=== PATIENT | female | born 1985 | race Caucasian/White ===

== ENCOUNTER → 2018-01-31 | Outpatient (CLI) | payer BC ==
[2018-01-31 12:18] LABS: Basophils % (A) 1 %; Eosinophils # (A) 0.1 k/uL (0-0.7); Eosinophils % (A) 1 %; HCT 39.3 % (34.0-46.0); HGB 12.9 gm/dL (11.4-16.0); Lymphocytes % (A) 17 %; MCH 29.5 pg (25.0-35.0); MCHC 32.9 g/dL (31.0-37.0); MCV 89.8 fL (80.0-100.0); Monocytes # (A) 0.3 k/uL (0-1.0); Monocytes % (A) 6 %; Neutrophils # (A) 4.1 k/uL (1.3-7.7); Neutrophils % (A) 73 %; Platelet Count 268 k/uL (150-450); RBC 4.38 m/uL (3.80-5.40); RDW 13.2 % (11.5-15.5); WBC 5.6 k/uL (3.8-10.6)
== END | disposition home or self-care (01) ==
LOC: LABPAT 11:25
PROVIDERS: ATTEND Obstetrics & Gynecology
DX: Z01.812 Encounter for preprocedural laboratory examination (principal); O02.1 Missed abortion; Z3A.00 Weeks of gestation of pregnancy not specified
CPT/HCPCS: 36415; 85025; 86850; 86900; 86901

== ENCOUNTER 2018-02-02 14:48 | Day surgery (SDC) | payer BC ==
[2018-01-31 15:22] VITALS: BMI 20.3
[~2018-02-02 14:48] MED LIST: Pre Op ABX Message 1 EACH MISC MISCELLANE ONE
[2018-02-02] MEDS ORDERED: LACTATED RINGERS 1,000 ML IV ONE (15:02)
[2018-02-02] MEDS ORDERED: LIDOCAINE 1% 20 ML VIAL (10MG/ML) FOR IV START INTRADERMA ONE (15:02)
[2018-02-02] MEDS ORDERED: ONDANSETRON 4 MG/2 ML VIAL IVP ONE (15:14)
[2018-02-02] MEDS ORDERED: DEXAMETHASONE SOD PHOS (MDV) 100 MG/10 ML VIAL IVP ONE (15:14)
[2018-02-02] MEDS ORDERED: PROPOFOL 10 MG/ML 20 ML VIAL IV ONE (16:33)
[2018-02-02] MEDS ORDERED: KETOROLAC 30 MG/ML 1 ML VIAL ONE (16:33)
[2018-02-02] MEDS ORDERED: fentaNYL (PF) 50 MCG/ML 2 ML AMP ONE (16:33)
[2018-02-02] MEDS ORDERED: LIDOCAINE 1% INJ 10MG/ML (20 ML MDV) ONE (16:33)
[2018-02-02] MEDS ORDERED: MIDAZOLAM 2 MG/2 ML VIAL ONE (16:33)
--- NOTE | 2018-02-02 17:00 | P.OP ---
Date of Procedure: 02/02/18 Preoperative Diagnosis: Missed Ab, 8 weeks gestation, Rh- Postoperative Diagnosis: Same Procedure(s) Performed: Suction dilatation and curettage of the uterus Anesthesia: NIESHA Surgeon: Pearl Tam Estimated Blood Loss (ml): 100 IV fluids (ml): 400 Urine output (ml): 100 Pathology: other (Intra uterine contents) Disposition: PACU Description of Procedure: Patient is brought to the operating suite where a general anesthesia is administered without difficulty. She's placed in the dorsal lithotomy position after the appropriate timeout is performed. Patient is Rh-, RhIg has been given in the office. The cervix, vagina, perineum are all prepped and draped in the usual sterile fashion. Examination under anesthesia reveals a retroverted uterus. Bladder is drained for approximately 100 mL of clear yellow urine. Weighted speculum was placed into the vagina. Anterior lip of the cervix is grasped with a double-tooth tenaculum. Uterus sounds to a depth of 10 cm in the retroverted position. Cervix is gently and systematically dilated using Hanks dilators. A #8 curved curet is placed to the dome of the fundus. Under appropriate suction pressures the uterine cavity is thoroughly curettaged. A moderate amount of tissue is obtained. A medium sharp curette is then used in all 4 quadrants to assure that the cavity is completely and thoroughly evacuated. The suction curette is placed once again, no additional blood or tissue is obtained. Instrumentation is removed from the vagina. The anterior lip of the cervix is clean and dry. All sponge needle and enhancement counts are correct at the and of the procedure. Toradol is given prior to leaving the operative suite. Patient is brought back to the recovery room in stable condition with vital signs including blood pressure 103/61, pulse 71, 99% O2 saturation. She will follow-up with me in the office in 2 weeks.
[2018-02-02 17:28] VITALS: TEMP 97.5
[2018-02-02 17:32] VITALS: RESP 16
[2018-02-02 17:47] VITALS: BP 102/70
[2018-02-02 18:05] VITALS: PULSE 72
== END 2018-02-02 18:26 | disposition home or self-care (01) ==
LOC: OR 14:48
PROVIDERS: ATTEND Obstetrics & Gynecology
DX: O02.1 Missed abortion (principal); K50.90 Crohn's disease, unspecified, without complications; D64.9 Anemia, unspecified; Z91.041 Radiographic dye allergy status; Z86.19 Personal history of other infectious and parasitic diseases
CPT/HCPCS: 88305; 59820; J2250; J2405; J2001; J3010; J1885; J1100; J2704

== ENCOUNTER 2018-06-13 14:14 | Emergency (ER) | payer BC ==
[2018-06-13] MEDS ORDERED: SODIUM CHLORIDE 0.9% 1,000 ML IV STA ×3 (15:07→16:26)
--- NOTE | 2018-06-13 15:40 | ED ---
General Adult HPI - General Chief complaint: Nausea/Vomiting/Diarrhea Stated complaint: 11 wks preg/dehydration Time Seen by Provider: 06/13/18 15:01 Source: patient, RN notes reviewed Mode of arrival: ambulatory Limitations: no limitations - History of Present Illness Initial comments: Patient's a 33-year-old female who is approximately 11 weeks , presenting to the emergency room today with a chief complaint of increased nausea vomiting and diarrhea. She does admit to a history of Crohn's disease. States over last few weeks she's been battling nausea vomiting and diarrhea. She states that she talked with her OB yesterday was advised complete emergency room for IV fluids if symptoms persisted. She states that she's had somewhat decreased nausea today but still some diarrhea. Patient denies any signs of blood in the emesis or stool. Patient denies any specific abdominal pains. She states she does have some cramping. No vaginal bleeding or discharge. Patient is G3, P1 one previous miscarriage. Patient has had ultrasound this showing viable IUP. Patient denies any other complaints. Patient denies any recent fever, chills, shortness of breath, chest pain, back pain, numbness or tingling, dysuria or hematuria, constipation, headaches or visual changes, or any other complaints. - Related Data Home Medications Medication Instructions Recorded Confirmed Dha Otc 1 tab PO HS 06/13/18 06/13/18 Pedi Multivit No.25/Folic Acid 300 mcg PO HS 06/13/18 06/13/18 [Flintstones Multivit Chew Tab] Allergies Allergy/AdvReac Type Severity Reaction Status Date / Time oral contrast AdvReac Vomiting Uncoded 06/13/18 14:19 Review of Systems ROS Statement: Those systems with pertinent positive or pertinent negative responses have been documented in the HPI. ROS Other: All systems not noted in ROS Statement are negative. Past Medical History Additional Past Medical History / Comment(s): missed ,chrohns History of Any Multi-Drug Resistant Organisms: None Reported Past Surgical History: Adenoidectomy, Tonsillectomy Additional Past Surgical History / Comment(s): Bowel resection with 3 feet removed due to chrons dx. L oophorectomy for benign tumor. Past Anesthesia/Blood Transfusion Reactions: No Reported Reaction Additional Past Anesthesia/Blood Transfusion Reaction / Comment(s): Pt has never recieved blood. Past Psychological History: No Psychological Hx Reported Smoking Status: Never smoker Past Alcohol Use History: None Reported Past Drug Use History: None Reported - Past Family History Father Family Medical History: Diabetes Mellitus Mother Additional Family Medical History / Comment(s): cholecystectomy Sister(s) Additional Family Medical History / Comment(s): multiple sclerosis General Exam - General Exam Comments Initial Comments: General: The patient is awake and alert, in no distress, and does not appear acutely ill. Eye: Pupils are equal, round and reactive to light. Extra-ocular movements are intact. No nystagmus. There is normal conjunctiva bilaterally. No signs of icterus. Ears, nose, mouth and throat: There are moist mucous membranes and no oral lesions. Neck: The neck is supple, there is no tenderness or JVD. Cardiovascular: There is a regular rate and rhythm. No murmur, rub or gallop is appreciated. Respiratory: Lungs are clear to auscultation, respirations are non-labored, breath sounds are equal. No wheezes, stridor, rales, or rhonchi. Gastrointestinal: Soft, non-distended, non-tender abdomen without masses or organomegaly noted. There is no rebound or guarding present. No CVA tenderness. Musculoskeletal: Normal ROM, no tenderness. Sensation intact. Strength 5/5. Pulses equal bilaterally 2+. Neurological: A&O x 3. CN II-XII intact, There are no obvious motor or sensory deficits. Coordination appears grossly intact. Speech is normal. Skin: Skin is warm and dry and no rashes or lesions are noted. Psychiatric: Cooperative, appropriate mood & affect, normal judgment. Limitations: no limitations Course Vital Signs 06/13/18 14:15 Temperature 97.9 F Pulse Rate 89 Respiratory 18 Rate Blood Pressure 115/78 O2 Sat by Pulse 99 Oximetry Medical Decision Making - Medical Decision Making Case discussed in detail with attending physician Dr. Weber. Patient reexamined at this time shows no signs of distress. She is resting couple. Patient labs been reviewed. Shows a glucose of 144. 4 + Glucose in her urine 3+ ketones. Patient given total of 2 L here in emergency room. Doing well. Abdomen soft on palpation. Patient has no current complaint. Patient will be discharged home to follow up with her CAFETERIA OPERATOR she does have an appointment tomorrow. - Lab Data Result diagrams: 06/13/18 15:47 06/13/18 15:47 Lab Results 06/13/18 06/13/18 06/13/18 Range/Units 15:47 15:47 15:47 WBC 5.9 (3.8-10.6) k/uL RBC 4.27 (3.80-5.40) m/uL Hgb 12.8 (11.4-16.0) gm/dL Hct 37.5 (34.0-46.0) % MCV 87.8 (80.0-100.0) fL MCH 29.9 (25.0-35.0) pg MCHC 34.1 (31.0-37.0) g/dL RDW 12.7 (11.5-15.5) % Plt Count 235 (150-450) k/uL Neutrophils % 65 % Lymphocytes % 24 % Monocytes % 7 % Eosinophils % 1 % Basophils % 0 % Neutrophils # 3.8 (1.3-7.7) k/uL Lymphocytes # 1.4 (1.0-4.8) k/uL Monocytes # 0.4 (0-1.0) k/uL Eosinophils # 0.1 (0-0.7) k/uL Basophils # 0.0 (0-0.2) k/uL Sodium 137 (137-145) mmol/L Potassium 3.7 (3.5-5.1) mmol/L Chloride 105 (98-107) mmol/L Carbon Dioxide 22 (22-30) mmol/L Anion Gap 10 mmol/L BUN 12 (7-17) mg/dL Creatinine 0.39 L (0.52-1.04) mg/dL Est GFR (CKD-EPI)AfAm >90 (>60 ml/min/1.73 sqM) Est GFR (CKD-EPI)NonAf >90 (>60 ml/min/1.73 sqM) Glucose 144 H (74-99) mg/dL Calcium 9.5 (8.4-10.2) mg/dL Total Bilirubin 0.3 (0.2-1.3) mg/dL AST 18 (14-36) U/L ALT 27 (9-52) U/L Alkaline Phosphatase 45 (38-126) U/L Total Protein 6.5 (6.3-8.2) g/dL Albumin 3.8 (3.5-5.0) g/dL Urine Color Yellow Urine Appearance Clear (Clear) Urine pH 5.5 (5.0-8.0) Ur Specific [place] 1.029 (1.001-1.035) Urine Protein Trace H (Negative) Urine Glucose (UA) 4+ H (Negative) Urine Ketones 3+ H (Negative) Urine Blood Negative (Negative) Urine Nitrite Negative (Negative) Urine Bilirubin Negative (Negative) Urine Urobilinogen <2.0 (<2.0) mg/dL Ur Leukocyte Esterase Trace H (Negative) Urine RBC 1 (0-5) /hpf Urine WBC 6 H (0-5) /hpf Ur Squamous Epith Cells 4 (0-4) /hpf Urine Bacteria Rare H (None) /hpf Urine Mucus Moderate H (None) /hpf Disposition Clinical Impression: Hyperemesis gravidarum, Elevated blood sugar Disposition: HOME SELF-CARE Condition: Good Instructions: Hyperemesis Gravidarum (ED) Additional Instructions: Please follow-up with CAFETERIA OPERATOR with her scheduled appointment tomorrow. Please return to emergency room if the symptoms increase or worsen or for any other concerns. Is patient prescribed a controlled substance at d/c from ED?: No Referrals: Nonstaff,Physician [REFERRING] - 1-2 days Pearl Tam MD [STAFF PHYSICIAN] - 1-2 days Time of Disposition: 16:59
[2018-06-13 16:10] LABS: Basophils % (A) 0 %; Eosinophils # (A) 0.1 k/uL (0-0.7); Eosinophils % (A) 1 %; HCT 37.5 % (34.0-46.0); HGB 12.8 gm/dL (11.4-16.0); Lymphocytes # (A) 1.4 k/uL (1.0-4.8); Lymphocytes % (A) 24 %; MCH 29.9 pg (25.0-35.0); MCHC 34.1 g/dL (31.0-37.0); MCV 87.8 fL (80.0-100.0); Mean Platelet Volume 6.5; Monocytes # (A) 0.4 k/uL (0-1.0); Monocytes % (A) 7 %; Neutrophils # (A) 3.8 k/uL (1.3-7.7); Neutrophils % (A) 65 %; Platelet Count 235 k/uL (150-450); RBC 4.27 m/uL (3.80-5.40); RDW 12.7 % (11.5-15.5); WBC 5.9 k/uL (3.8-10.6)
[2018-06-13 16:13] LABS: Appearance,Urine Clear (Clear); Bacteria,Urine Rare /hpf; Bilirubin,Urine Negative (Negative); Blood,Urine Negative (Negative); Color,Urine Yellow; Glucose,Urine (UA) 4+ (Negative); Leukocyte Esterase,Urine Trace (Negative); Mucus,Urine Moderate /hpf; Nitrite,Urine Negative (Negative); PH, Urine 5.5 (5.0-8.0); Protein,Urine Trace (Negative); RBC,Urine 1 /hpf (0-5); Specific Gravity,Urine 1.029 (1.001-1.035); Squamous Epithelial Cell,Urine 4 /hpf (0-4); Urobilinogen,Urine <2.0 mg/dL (<2.0)
[2018-06-13 16:24] LABS: Ketones,Urine 3+ (Negative)
[2018-06-13 16:30] LABS: ALT 27 U/L (9-52); AST 18 U/L (14-36); Albumin 3.8 g/dL (3.5-5.0); Alkaline Phosphatase 45 U/L (38-126); Anion Gap 10 mmol/L; Blood Urea Nitrogen 12 mg/dL (7-17); Calcium 9.5 mg/dL (8.4-10.2); Carbon Dioxide 22 mmol/L (22-30); Chloride 105 mmol/L (98-107); Glucose 144 mg/dL (74-99); Potassium 3.7 mmol/L (3.5-5.1); Sodium 137 mmol/L (137-145); Total Bilirubin 0.3 mg/dL (0.2-1.3); Total Protein 6.5 g/dL (6.3-8.2)
[2018-06-13 17:12] VITALS: TEMP 97.5
[2018-06-13 18:13] VITALS: BP 102/76; PULSE 89; RESP 18
== END 2018-06-13 18:11 | disposition home or self-care (01) ==
LOC: EC 14:14
DX: O21.1 Hyperemesis gravidarum with metabolic disturbance (principal); O99.89 Other specified diseases and conditions complicating pregnancy, childbirth and the puerperium; R73.9 Hyperglycemia, unspecified; R19.7 Diarrhea, unspecified; Z91.041 Radiographic dye allergy status; Z87.19 Personal history of other diseases of the digestive system; Z98.890 Other specified postprocedural states; Z90.721 Acquired absence of ovaries, unilateral; Z83.3 Family history of diabetes mellitus; Z3A.11 11 weeks gestation of pregnancy
CPT/HCPCS: 36415; 80053; 81001; 85025; 87086; 96360; 96361; 99284

== ENCOUNTER → 2018-10-20 | Outpatient (CLI) | payer BC ==
[2018-10-20 12:16] LABS: Glucose 3 Hour, Gest 115 mg/dL
== END | disposition home or self-care (01) ==
LOC: LABWHC1 08:01
PROVIDERS: ATTEND Obstetrics & Gynecology
DX: O99.810 Abnormal glucose complicating pregnancy (principal); Z3A.00 Weeks of gestation of pregnancy not specified
CPT/HCPCS: 36415; 82951; 82952

== ENCOUNTER 2019-01-02 06:00 | Inpatient (IN) | payer BC ==
[2019-01-02] MEDS ORDERED: TERBUTALINE 1 MG/ML VIAL SQ PRN (06:12)
[2019-01-02] MEDS ORDERED: CARBOPROST TROMETHAMINE 250 MCG/ML 1 ML AMP IM PRN (06:12)
[2019-01-02] MEDS ORDERED: LIDOCAINE 0.5% (PF) 5 MG/ML (50 ML SDV) SQ PRN (06:12)
[2019-01-02] MEDS ORDERED: OXYTOCIN 10 UNIT/ML 1 ML VIAL IM PRN (06:12)
[2019-01-02] MEDS ORDERED: METHYLERGONOVINE 0.2 MG/ML 1 ML AMP IM PRN (06:12)
[2019-01-02] MEDS ORDERED: OXYTOCIN 30 UNITS/500 ML NS 30 UNIT in SALINE 1 500ML.BAG IV SCH (06:15)
[2019-01-02] MEDS: LACTATED RINGERS 1,000 ML IV SCH ×2 (06:22→09:40)
[2019-01-02 06:51] LABS: Basophils % (A) 0 %; Eosinophils # (A) 0.1 k/uL (0-0.7); Eosinophils % (A) 1 %; HGB 11.7 gm/dL (11.4-16.0); Lymphocytes # (A) 1.2 k/uL (1.0-4.8); Lymphocytes % (A) 29 %; MCH 28.9 pg (25.0-35.0); MCHC 31.7 g/dL (31.0-37.0); MCV 91.3 fL (80.0-100.0); Mean Platelet Volume 8.8; Monocytes # (A) 0.3 k/uL (0-1.0); Monocytes % (A) 7 %; Neutrophils # (A) 2.5 k/uL (1.3-7.7); Neutrophils % (A) 60 %; Platelet Count 196 k/uL (150-450); RBC 4.05 m/uL (3.80-5.40); RDW 14.4 % (11.5-15.5); WBC 4.1 k/uL (3.8-10.6)
[2019-01-02 07:15] VITALS: BMI 27.4
--- NOTE | 2019-01-02 07:37 | P.HPOB ---
History of Present Illness H&P Date: 01/02/19 Chief Complaint: Here for elective induction of labor This is a 33-year-old white female 3 para 1011 EDC 01/02/2019 at 40 weeks gestation. Patient presents today for induction with favorable multiparous cervix. Fetus is been active throughout the . She is having mild irregular spontaneous uterine contractions approximately every 6-8 minutes apart. history significant for blood type O-, rubella status immune. VDRL testing, urine culture, hepatitis B surface antigen, HIV testing, gonorrhea and chlamydia cultures, group B strep cultures all negative. One-hour Glucola elevated, 3 hour gtt within normal limits. Past medical history is significant for Crohn's disease, Lyme disease, and anemia. Past surgical history left oophorectomy 2010, small intestine and colon repair 2007, suction D&C for missed AB 2017, tonsillectomy 1998. Current medications Fish oil daily, vitamins daily. ALLERGIES none known. Family history is significant for congenital heart defect, multiple sclerosis, diabetes, hypertension. Social history patient is , she is never been a smoker, she denies alcohol or drug use. On exam this is a pleasant white female who is 5 foot 3 inches, 155 pounds, blood pressure 118/75, vital signs are stable and she is afebrile. Gen. physical exam is within normal limits. Cervix is 3 cm dilated, 60% effaced, soft, anterior, -2. Artificial amniorrhexis reveals clear fluid. heart rate is consistent with reactive NST, baseline 130s with accelerations into the 150s. Impression: 40 week intrauterine , here for elective induction of labor, all signs reassuring. Plan: Close maternal and surveillance. Oxytocin per hospital protocol. Anticipate normal spontaneous vaginal delivery. Review of Systems Constitutional: Reports as per HPI Past Medical History Additional Past Medical History / Comment(s): missed ,chrohns History of Any Multi-Drug Resistant Organisms: None Reported Past Surgical History: Adenoidectomy, Tonsillectomy Additional Past Surgical History / Comment(s): Bowel resection with 3 feet removed due to chrons dx. L oophorectomy for benign tumor. Past Anesthesia/Blood Transfusion Reactions: No Reported Reaction Additional Past Anesthesia/Blood Transfusion Reaction / Comment(s): Pt has never recieved blood. Past Psychological History: Anxiety Smoking Status: Never smoker Past Alcohol Use History: None Reported Past Drug Use History: None Reported - Past Family History Father Family Medical History: Diabetes Mellitus, Myocardial Infarction ([place]) Mother Additional Family Medical History / Comment(s): cholecystectomy Sister(s) Additional Family Medical History / Comment(s): multiple sclerosis Medications and Allergies Home Medications Medication Instructions Recorded Confirmed Type Pedi Multivit No.25/Folic Acid 300 mcg PO HS 06/13/18 01/02/19 History [Flintstones Multivit Chew Tab] Allergies Allergy/AdvReac Type Severity Reaction Status Date / Time oral contrast AdvReac Vomiting Uncoded 01/02/19 06:08 Exam Vital Signs Temp Pulse Resp BP 01/02/19 07:09 96.5 F L 99 16 118/75 Intake and Output 01/01/19 01/02/19 01/02/19 22:59 06:59 14:59 Other: Weight 70.307 kg See dictation under HPI please Results Result Diagrams: 01/02/19 06:29 Assessment and Plan Assessment: 40 week intrauterine , Crohn's disease, here for elective induction of labor, all signs reassuring. Plan: Oxytocin per hospital protocol. All signs reassuring. Analgesic options reviewed with the patient. Anticipate normal spontaneous vaginal delivery. Time with Patient: Less than 30
[2019-01-02] MEDS ORDERED: fentaNYL (PF) 50 MCG/ML 5 ML AMP ONE (09:28)
[2019-01-02] MEDS ORDERED: ROPIVACAINE 5MG/ML 20ML VIAL ONE (09:28)
[2019-01-02] MEDS ORDERED: SODIUM CHLORIDE 0.9% 100 ML BAG ONE (09:28)
[2019-01-02] MEDS ORDERED: ROPIVACAINE 100 MG, fentaNYL (PF) 200 MCG in SODIUM CHLORIDE 0.9% 76 ML EPIDURAL ONE (09:45)
[2019-01-02] MEDS ORDERED: WITCH HAZEL 1 EACH MED..PAD TOPICAL ONE (13:18)
[2019-01-02] MEDS ORDERED: BENZOCAINE/MENTHOL SPRAY 1 GM/SPRAY AEROSOL TOPICAL PRN (14:38)
[2019-01-02] MEDS ORDERED: SIMETHICONE 80 MG CHEWABLE PO PRN (14:38)
[2019-01-02] MEDS ORDERED: diphenhydrAMINE 50 MG/ML 1 ML VIAL IVP PRN ×2 (14:38)
[2019-01-02] MEDS ORDERED: ZOLPIDEM 5 MG TAB PO PRN (14:38)
[2019-01-02] MEDS ORDERED: WITCH HAZEL 1 EACH MED..PAD TOPICAL PRN (14:38)
[2019-01-02] MEDS ORDERED: diphenhydrAMINE 50 MG CAP PO PRN (14:38)
[2019-01-02] MEDS ORDERED: ACETAMINOPHEN TAB 325 MG TAB PO PRN (14:38)
[2019-01-02] MEDS ORDERED: diphenhydrAMINE 25 MG CAP PO PRN (14:38)
[2019-01-02] MEDS ORDERED: BISACODYL 10 MG SUPP RECTAL PRN (14:38)
[2019-01-02] MEDS ORDERED: OXYTOCIN 20 UNITS/1000 ML NS 1,000 ML IV SCH (14:45)
[2019-01-02] MEDS: IBUPROFEN 600 MG TAB PO PRN (20:15)
[2019-01-02] MEDS: SENNOSIDES-DOCUSATE SODIUM 1 EACH TAB PO SCH (20:16)
[2019-01-02] MEDS ORDERED: Rhogam IMMUNE GLOBULIN 1,500 UNIT/1 ML IM ONE (21:15)
[2019-01-03] MEDS: IBUPROFEN 600 MG TAB PO PRN ×2 (04:19→13:15)
--- NOTE | 2019-01-03 06:18 | DN ---
DELIVERY SUMMARY DATE OF DELIVERY: 01/02/2019. This is a 33-year-old white female, 3, para 1-0-1-1, EDC 01/02/2019, at 40 weeks gestation. Patient presented earlier this morning for induction with term multiparous cervix. Fetus has been active throughout the . history essentially unremarkable, rubella status immune, group B strep cultures negative, blood type O negative. Please see dictated history and physical for details. Artificial amniorrhexis revealed clear fluid. Oxytocin was started and titrated per hospital protocol. The patient progressed well through the 1st stage of labor, she requested and received an epidural. She became completely dilated at 1255 hours. Perineal body was prepped and draped in usual sterile fashion. With excellent maternal expulsive efforts, the infant's head delivered occiput anterior and restituted accordingly. The left or anterior shoulder was gently and easily delivered from underneath the pubic symphysis. The patient was officially delivered of a live-born male infant at 1:16 pm. Umbilical cord was doubly clamped and ligated, he was handed to waiting nurses for evaluation with scores of 8 and 9 at 1 and 5 minutes respectively were given. The uterus was massaged. The placenta delivered spontaneously, it was inspected and noted to be intact with trivascular cord at 1:18 pm. Inspection now of the cervix, vagina, perineum, periurethral, and perirectal areas revealed a small second-degree midline perineal laceration. This was repaired in the usual fashion using 2-0 Vicryl suture for excellent reapproximation. Fundus is firm and in the midline, symmetric and 18 week size upon completion of delivery. ESTIMATED BLOOD LOSS: 250 mL. The patient and her are allowed to begin the bounding experience in the LDR. They are requesting circumcision for the infant son, who weighed 7 pounds 10 ounces or 3460 g. MMODL / IJN: [id number] /
--- NOTE | 2019-01-03 07:18 | P.DS ---
Providers Date of admission: 01/02/19 06:01 Expected date of discharge: 01/03/19 Attending physician: Pearl Tam Primary care physician: Stated None Hospital Course: This is a 33-year-old white female 3 para 1011 EDC 01/02/2019 at 40 weeks gestation. Patient presented for elective induction with favorable multiparous cervix. is remarkable for rubella status immune, blood type O negative, group B strep cultures negative. Please see dictated history and physical for details. Artificial amniorrhexis revealed clear fluid. Oxytocin was started and titrated per hospital protocol. Patient went on to swiftly deliver a liveborn male with scores of 9 and 9 at one and 5 minutes respectively. Infant weighed 7 lbs. 10 oz. or 3460 g. There was a small second-degree perineal laceration easily repaired and an estimated blood loss of 250 mL's. Please see my dictated delivery note for details. This morning the patient is doing well. She is voiding, ambulating and passing flatus without difficulty. Vital signs are stable and she is afebrile. Fundus is firm and in the midline, symmetric and 18 week size. Extremities are negative for edema. [place] infant is doing well, circumcision has been pe rformed. Patient is judged to be in very good condition for discharge home. She will follow-up with me in the office in 6 weeks. I have reminded her no intercourse, tampons or douching. She will use [id number] Advil or Aleve, or Motrin as needed for pain. She will call the office with any fevers shakes or chills, foul smelling or copious lochia, with the passage of large blood clots, with any pain not alleviated by [id number] products, or indeed with any concerns. will follow-up with pantomimist as per recommendations. Patient Condition at Discharge: Good Plan - Discharge Summary Discharge Rx Participant: No New Discharge Prescriptions: No Action Pedi Multivit No.25/Folic Acid [Flintstones Multivit Chew Tab] 300 mcg PO HS Discharge Medication List Pedi Multivit No.25/Folic Acid [Flintstones Multivit Chew Tab] 300 mcg PO HS 06/13/18 [History] Follow up Appointment(s)/Referral(s): Pearl Tam MD [STAFF PHYSICIAN] - 6 Weeks Discharge Disposition: HOME SELF-CARE
[2019-01-03] MEDS: SENNOSIDES-DOCUSATE SODIUM 1 EACH TAB PO SCH (08:15)
[2019-01-03 08:18] VITALS: BP 112/69; PULSE 82; RESP 18; TEMP 97.8
== END 2019-01-03 13:50 | disposition home or self-care (01) | DRG 806 ==
LOC: 4FBP 06:01
PROVIDERS: ADMIT Obstetrics & Gynecology; ATTEND Obstetrics & Gynecology
PROC: 10E0XZZ Delivery of Products of Conception, External Approach (ICD-10-PCS; principal; 2019-01-02)
PROC: 0KQM0ZZ Repair Perineum Muscle, Open Approach (ICD-10-PCS; 2019-01-02)
PROC: 10907ZC Drainage of Amniotic Fluid, Therapeutic from Products of Conception, Via Natural or Artificial Opening (ICD-10-PCS; 2019-01-02)
PROC: 3E033VJ Introduction of Other Hormone into Peripheral Vein, Percutaneous Approach (ICD-10-PCS; 2019-01-02)
PROC: 00HU33Z Insertion of Infusion Device into Spinal Canal, Percutaneous Approach (ICD-10-PCS; 2019-01-02)
PROC: 3E0R3BZ Introduction of Anesthetic Agent into Spinal Canal, Percutaneous Approach (ICD-10-PCS; 2019-01-02)
DX: O99.62 Diseases of the digestive system complicating childbirth (principal); K50.90 Crohn's disease, unspecified, without complications; Z37.0 Single live birth; O99.344 Other mental disorders complicating childbirth; F41.9 Anxiety disorder, unspecified; O70.1 Second degree perineal laceration during delivery; Z87.898 Personal history of other specified conditions; Z3A.40 40 weeks gestation of pregnancy; Z90.721 Acquired absence of ovaries, unilateral; Z83.3 Family history of diabetes mellitus; Z82.49 Family history of ischemic heart disease and other diseases of the circulatory system; Z82.0 Family history of epilepsy and other diseases of the nervous system; Z90.49 Acquired absence of other specified parts of digestive tract
CPT/HCPCS: 85025; 85461; 86850; 86870; 86880; 86900; 86901

== ENCOUNTER → 2021-04-17 | Outpatient (CLI) | payer OTHER ==
[2021-04-17 14:22] LABS: Basophils # (A) 0.02 X 10*3/uL (0.00-0.10); Basophils % (A) 0.4 %; Eosinophils # (A) 0.05 X 10*3/uL (0.04-0.35); Eosinophils % (A) 1.1 %; HCT 36.4 % (37.2-46.3); HGB 11.5 g/dL (12.0-15.0); Lymphocytes # (A) 1.36 X 10*3/uL (0.90-5.00); Lymphocytes % (A) 28.9 %; MCH 27.8 pg (27.0-32.0); MCHC 31.6 g/dL (32.0-37.0); MCV 87.9 fL (80.0-97.0); Mean Platelet Volume 10.8 fL (9.5-12.2); Monocytes # (A) 0.35 X 10*3/uL (0.20-1.00); Monocytes % (A) 7.4 %; Neutrophils # (A) 2.92 X 10*3/uL (1.80-7.70); Platelet Count 279 X 10*3/uL (140-440); RBC 4.14 X 10*6/uL (4.10-5.20); RDW 13.8 % (11.5-14.5); WBC 4.71 X 10*3/uL (4.50-10.00)
[2021-04-17 16:42] LABS: Hemoglobin A1C 5.4 % (4.0-6.0)
[2021-04-18 04:52] LABS: Hepatitis A Antibody IgM Non-Reactive (Non-Reactive); Hepatitis B Core IgM Non-Reactive (Non-Reactive); Hepatitis B Surface Antigen Non-Reactive (Non-Reactive); Hepatitis C IgG Antibody Non-Reactive (Non-Reactive)
[2021-04-18 05:56] LABS: ALT 17 U/L (8-44); AST 27 U/L (13-35); African American GFR (CKD) 138.8 (60.0-200.0); Albumin/Globulin Ratio 1.88 (1.60-3.17); Alkaline Phosphatase 75 U/L (41-126); BUN/Creat Ratio 23.33 Ratio (12.00-20.00); Calcium 9.3 mg/dL (8.7-10.3); Chloride 108 mmol/L (96-109); Chol/HDL Ratio 2.33; Cholesterol 140 mg/dL (0-200); Globulin 2.4 g/dL (1.6-3.3); Glucose 71 mg/dL (70-110); Non-African American GFR(CKD) 119.8 (60.0-200.0); Potassium 4.1 mmol/L (3.5-5.5); Sodium 141 mmol/L (135-145); Total Bilirubin 0.6 mg/dL (0.2-1.2); Total Protein 6.9 g/dL (6.2-8.2); Triglycerides <50.0 mg/dL (0.0-149.0)
[2021-04-18 10:53] LABS: V. zoster Source Blood - Plasma
== END | disposition home or self-care (01) ==
LOC: LABWHC1 09:29
PROVIDERS: ATTEND Nurse Practitioner Family
DX: E07.9 Disorder of thyroid, unspecified (principal); K50.90 Crohn's disease, unspecified, without complications; R73.9 Hyperglycemia, unspecified; Z20.822 Contact with and (suspected) exposure to COVID-19
CPT/HCPCS: 36415; 80053; 80061; 80074; 82306; 82607; 83036; 83735; 84432; 84439; 84443; 84480; 84630; 85025; 86769; 86787; 87798

== ENCOUNTER 2022-08-02 06:00 | Inpatient (IN) | payer OTHER ==
[2022-08-02] MEDS ORDERED: TERBUTALINE 1 MG/ML VIAL SQ PRN (06:33)
[2022-08-02] MEDS ORDERED: LIDOCAINE 0.5% (PF) 5 MG/ML (50 ML SDV) SQ PRN (06:33)
[2022-08-02] MEDS: LACTATED RINGERS 1,000 ML IV SCH ×2 (06:37→10:08)
[2022-08-02 06:44] LABS: Anisocytosis Slight; Basophils % (A) 1 %; Eosinophils # (A) 0.1 k/uL (0-0.7); Eosinophils % (A) 3 %; HGB 12.8 gm/dL (11.4-16.0); Lymphocytes # (A) 1.5 k/uL (1.0-4.8); Lymphocytes % (A) 30 %; MCH 29.3 pg (25.0-35.0); MCHC 33.5 g/dL (31.0-37.0); MCV 87.3 fL (80.0-100.0); Mean Platelet Volume 8.9; Monocytes # (A) 0.3 k/uL (0-1.0); Monocytes % (A) 6 %; Neutrophils # (A) 2.9 k/uL (1.3-7.7); Neutrophils % (A) 58 %; Platelet Count 214 k/uL (150-450); RBC 4.36 m/uL (3.80-5.40); RDW 16.2 % (11.5-15.5)
[2022-08-02] MEDS ORDERED: OXYTOCIN 30 UNITS/500 ML NS 30 UNIT in SALINE 1 500ML.BAG IV SCH (06:45)
--- NOTE | 2022-08-02 07:17 | P.HPOB ---
History of Present Illness H&P Date: 08/02/22 Chief Complaint: Here for induction of labor This is a 37-year-old female 4 para 2012 EDC 08/09/2022 at 39 weeks gestation who presents for induction of labor with favorable multiparous cervix. She denies vaginal bleeding or fluid leakage. Fetus is been active throughout the . Past medical history is significant for Lyme disease, migraine headaches, Residential Treatment Staff hn's disease. Past surgical history laparotomy with left oophorectomy, suction D&C, tonsillectomy, colon repair. Current medications vitamins daily, baby aspirin daily. ALLERGIES none known. Family history significant for multiple sclerosis, type 2 diabetes, hypertension, cardiac disorder. Reproductive history normal spontaneous vaginal deliveries 2, unremarkable. Social history patient has never been a smoker, she is , she is employed, she denies alcohol or drug use. Obstetric history is significant for blood type O-, rubella status immune. Group B strep cultures, hepatitis B surface antigen, gonorrhea and chlamydia cultures all negative. Rubella status immune. On exam patient is 5 foot 3 inches, 160 pounds, blood pressure 109/70. Vital signs are stable and she is afebrile. General physical exam is within normal limits. Cervix is 3 cm dilated, 70% effaced, -2 station, vertex presentation. Artificial amniorrhexis reveals clear fluid. heart rate is consistent with reactive NST. Impression: 39 week intrauterine , here for induction of labor, all signs reassuring. Plan: Analgesic options reviewed. Oxytocin per hospital protocol. Close maternal and surveillance. Anticipate normal spontaneous vaginal delivery. Review of Systems Constitutional: Reports as per HPI Past Medical History Additional Past Medical History / Comment(s): missed ,chrohns History of Any Multi-Drug Resistant Organisms: None Reported Past Surgical History: Adenoidectomy, Tonsillectomy Additional Past Surgical History / Comment(s): Bowel resection with 3 feet removed due to chrons dx. L oophorectomy for benign tumor. Past Anesthesia/Blood Transfusion Reactions: No Reported Reaction Additional Past Anesthesia/Blood Transfusion Reaction / Comment(s): Pt has never recieved blood. Past Psychological History: Anxiety Additional Psychological History / Comment(s): Pt lives with . She is active. She is 21 weeks with their first child and it is a boy. Smoking Status: Never smoker Past Alcohol Use History: None Reported Past Drug Use History: None Reported - Past Family History Father Family Medical History: Diabetes Mellitus, Myocardial Infarction ([place]) Mother Additional Family Medical History / Comment(s): cholecystectomy Sister(s) Additional Family Medical History / Comment(s): multiple sclerosis Medications and Allergies Home Medications Medication Instructions Recorded Confirmed Type Mbc-Lbke-Qucgb Acid 1 cap PO DAILY 12/16/21 08/02/22 History [-U Capsule (formulary)] Aspirin EC [Ecotrin Low Dose] 1 tab PO DAILY 08/02/22 08/02/22 History Allergies Allergy/AdvReac Type Severity Reaction Status Date / Time oral contrast AdvReac Vomiting Uncoded 12/16/21 23:22 Exam Intake and Output 08/01/22 08/02/22 08/02/22 22:59 06:59 14:59 Other: Weight 72.575 kg See dictation under HPI please Results Result Diagrams: 08/02/22 06:20 Abnormal Lab Results - Last 24 Hours (Table) 08/02/22 Range/Units 06:20 RDW 16.2 H (11.5-15.5) % Assessment and Plan Assessment: 39 week intrauterine , favorable multiparous cervix, here for induction of labor. All signs reassuring. Plan: Oxytocin per hospital protocol. Close maternal and surveillance. Analgesic options reviewed. Anticipate normal spontaneous vaginal delivery. Time with Patient: Less than 30
[2022-08-02 07:33] VITALS: RESP 16
[2022-08-02] MEDS ORDERED: SODIUM CHLORIDE 0.9% 100 ML BAG ONE (09:33)
[2022-08-02] MEDS ORDERED: fentaNYL (PF) 50 MCG/ML 5 ML AMP ONE (09:33)
[2022-08-02] MEDS ORDERED: BUPIVACAINE (PF) 0.25% 30 ML VIAL ONE (09:33)
[2022-08-02] MEDS ORDERED: LANOLIN CREAM 5 GM TUBE TOPICAL PRN (12:39)
[2022-08-02] MEDS ORDERED: ZOLPIDEM 5 MG TAB PO PRN (12:39)
[2022-08-02] MEDS ORDERED: BENZOCAINE/MENTHOL SPRAY 1 GM/SPRAY AEROSOL TOPICAL PRN (12:39)
[2022-08-02] MEDS ORDERED: diphenhydrAMINE 50 MG/ML 1 ML VIAL IVP PRN ×2 (12:39)
[2022-08-02] MEDS ORDERED: diphenhydrAMINE 25 MG CAP PO PRN (12:39)
[2022-08-02] MEDS ORDERED: diphenhydrAMINE 50 MG CAP PO PRN (12:39)
[2022-08-02] MEDS ORDERED: SIMETHICONE 80 MG CHEWABLE PO PRN (12:39)
[2022-08-02] MEDS ORDERED: diphenhydrAMINE ELIXIR 25 MG/10 ML CUP PO PRN (12:39)
[2022-08-02] MEDS ORDERED: HYDROCORTISONE 2.5% RECTAL CREAM 30 GM TUBE RECTAL PRN (12:39)
--- NOTE | 2022-08-02 12:39 | P.PROBDLV ---
Vaginal Delivery Note - . Vaginal Delivery Note: This is a 37-year-old female 4 para 2011 EDC 08/09/2022 at 39 weeks gestation. Patient presented for induction. History remarkable for Crohn's disease, history of Lyme disease, migraine headaches, anemia. Blood type O negative, rubella status immune, group B strep cultures negative. Please see my dictated history and physical for details. Artificial amniorrhexis revealed clear fluid. Epidural was placed per her request. Oxytocin was started and titrated per hospital protocol. At all times heart rate remained very reassuring with frequent accelerations. She became completely dilated at 1210 hrs. Perineal body was prepped and draped in usual sterile fashion. With excellent maternal expulsive efforts the infant's head crowned in the occiput anterior position. The left or anterior shoulder was delivered easily at which time the fetus delivered quickly, at 1221 hrs. Umbilical cord was doubly clamped and ligated, she was handed to waiting nurses for evaluation where scores of 9 and 9 at one and 5 minutes respectively were given. weighed 6 pounds 14.8 ounces or 3140 g. Placenta delivered spontaneously, it was inspected and noted to be intact with trivascular cord at 1224 hrs. At this time the uterus was massaged. Careful inspection of the cervix, vagina, perineum, periurethral, and perirectal areas revealed a small first-degree perineal laceration. This was repaired in the usual fashion using a single [id number] suture of repeat. All sponge needle and enhancement counts are correct. Total estimated blood loss 100 mL's. Patient and her family are allowed to begin the bonding experience in the LDR.
[2022-08-02] MEDS: IBUPROFEN 600 MG TAB PO SCH ×2 (16:36→22:22)
[2022-08-02] MEDS: SENNOSIDES-DOCUSATE SODIUM 1 EACH TAB PO SCH (22:22)
[2022-08-03] MEDS: ACETAMINOPHEN TAB 325 MG TAB PO PRN ×2 (01:54→08:20)
[2022-08-03] MEDS: IBUPROFEN 600 MG TAB PO SCH ×2 (04:31→08:43)
--- NOTE | 2022-08-03 07:49 | P.DS ---
Providers Date of admission: 08/02/22 06:03 Expected date of discharge: 08/03/22 Attending physician: Pearl Tam Primary care physician: [facility] Course: This is a 37-year-old female 4 para 2011 EDC 08/09/2022 at 39 weeks gestation who presented for induction with favorable multiparous cervix. Blood type O-, rubella status immune, group B strep cultures negative. Please see dictated history and physical for details. Artificial amniorrhexis revealed clear fluid. Oxytocin was started and titrated per protocol. Epidural was placed per her request. She went on to deliver vaginally a liveborn female infant with scores of 9 and 9 at one and 5 minutes respectively. There were no issues, estimated blood loss 100 mL, small first-degree midline laceration easily repaired. weighed 6 pounds 14.8 ounces or 3140 g. Please see my dictated delivery note for details. This morning the patient and her are doing well. Patient is voiding, ambulating, passing flatus without difficulty. Vital signs are stable and she is afebrile. Fundus is firm and in the midline, symmetric and 18 week size. Extremities are negative for edema. Breast-feeding is going well. Patient is judged to be in excellent condition for discharge home. She will follow-up with me in the office in 6 weeks. She will call with any fevers shakes or chills, foul smelling or copious lochia, with the passage of large blood clots, with any pain not alleviated by [id number] products, or indeed with any concerns. We have briefly discussed contraceptive options and we will discuss this further in the office. Assessment: Doing well first day Patient Condition at Discharge: Good Plan - Discharge Summary Discharge Rx Participant: No New Discharge Prescriptions: No Action Ash-Nvgv-Wjktc Acid [-U Capsule (formulary)] 1 cap PO DAILY Aspirin EC [Ecotrin Low Dose] 1 tab PO DAILY Discharge Medication List Omo-Yrxw-Diqvq Acid [-U Capsule (formulary)] 1 cap PO DAILY 12/16/21 [History] Aspirin EC [Ecotrin Low Dose] 1 tab PO DAILY 08/02/22 [History] Follow up Appointment(s)/Referral(s): Pearl Tam MD [STAFF PHYSICIAN] - 6 Weeks Discharge Disposition: HOME SELF-CARE
[2022-08-03] MEDS: SENNOSIDES-DOCUSATE SODIUM 1 EACH TAB PO SCH (08:20)
[2022-08-03 08:42] VITALS: BP 119/82; PULSE 77; TEMP 98.7
== END 2022-08-03 12:45 | disposition home or self-care (01) | DRG 806 ==
LOC: 4FBP 06:03
PROVIDERS: ADMIT Obstetrics & Gynecology; ATTEND Obstetrics & Gynecology
PROC: 10E0XZZ Delivery of Products of Conception, External Approach (ICD-10-PCS; principal; 2022-08-02)
PROC: 10907ZC Drainage of Amniotic Fluid, Therapeutic from Products of Conception, Via Natural or Artificial Opening (ICD-10-PCS; 2022-08-02)
PROC: 3E033VJ Introduction of Other Hormone into Peripheral Vein, Percutaneous Approach (ICD-10-PCS; 2022-08-02)
PROC: 0HQ9XZZ Repair Perineum Skin, External Approach (ICD-10-PCS; 2022-08-02)
PROC: 4A0HXCZ Measurement of Products of Conception, Cardiac Rate, External Approach (ICD-10-PCS; 2022-08-02)
DX: O70.0 First degree perineal laceration during delivery (principal); K50.90 Crohn's disease, unspecified, without complications; Z37.0 Single live birth; F41.9 Anxiety disorder, unspecified; O99.62 Diseases of the digestive system complicating childbirth; Z3A.39 39 weeks gestation of pregnancy; Z79.82 Long term (current) use of aspirin; Z86.19 Personal history of other infectious and parasitic diseases; Z90.721 Acquired absence of ovaries, unilateral; Z87.19 Personal history of other diseases of the digestive system; Z91.041 Radiographic dye allergy status; Z87.59 Personal history of other complications of pregnancy, childbirth and the puerperium; O99.344 Other mental disorders complicating childbirth
CPT/HCPCS: 85025; 86850; 86870; 86880; 86900; 86901

== ENCOUNTER 2023-11-04 22:05 | Emergency (ER) | payer OTHER ==
[2023-11-04 22:22] VITALS: RESP 18
[2023-11-05] MEDS: SODIUM CHLORIDE 0.9% 1,000 ML IV STA (00:09)
[2023-11-05] MEDS: MECLIZINE 12.5 MG TAB PO STA (00:09)
--- NOTE | 2023-11-05 00:29 | XR ---
EXAMINATION TYPE: XR chest 2V DATE OF EXAM: 11/05/2023 COMPARISON: Chest x-ray December 16, 2021 HISTORY: Dizziness. TECHNIQUE: Frontal and lateral views of the chest are obtained. FINDINGS: There is no focal air space opacity, pleural effusion, or pneumothorax seen. The cardiac silhouette size is stable and within normal limits. The osseous structures are intact. Overlying EK G leads are now present. IMPRESSION: No acute cardiopulmonary process.
[2023-11-05 00:46] LABS: Appearance,Urine Clear (Clear); Bilirubin,Urine Negative (Negative); Blood,Urine Negative (Negative); Color,Urine Colorless; Glucose,Urine (UA) Negative (Negative); Ketones,Urine Negative (Negative); Leukocyte Esterase,Urine Negative (Negative); Nitrite,Urine Negative (Negative); PH, Urine 6.5 (5.0-8.0); Protein,Urine Negative (Negative); Specific Gravity,Urine 1.004 (1.001-1.035); Urobilinogen,Urine <2.0 mg/dL (<2.0)
[2023-11-05 00:55] LABS: Basophils % (A) 1 %; Eosinophils # (A) 0.1 k/uL (0-0.7); Eosinophils % (A) 2 %; HCT 38.8 % (34.0-46.0); HGB 12.4 gm/dL (11.4-16.0); Lymphocytes # (A) 1.8 k/uL (1.0-4.8); Lymphocytes % (A) 32 %; MCH 27.2 pg (25.0-35.0); MCV 84.8 fL (80.0-100.0); Mean Platelet Volume 8.1; Monocytes # (A) 0.4 k/uL (0-1.0); Monocytes % (A) 7 %; Neutrophils # (A) 3.2 k/uL (1.3-7.7); Neutrophils % (A) 56 %; Platelet Count 306 k/uL (150-450); RBC 4.57 m/uL (3.80-5.40); RDW 13.5 % (11.5-15.5); WBC 5.7 k/uL (3.8-10.6)
[2023-11-05 01:10] LABS: Prothrombin Time 10.5 sec (10.0-12.5)
[2023-11-05 01:16] LABS: ALT 18 U/L (4-34); AST 24 U/L (14-36); African American GFR (CKD) >90 (>60 ml/min/1.73 sqM); Albumin 4.3 g/dL (3.5-5.0); Alkaline Phosphatase 92 U/L (38-126); Anion Gap 8 mmol/L; Blood Urea Nitrogen 14 mg/dL (7-17); Calcium 9.4 mg/dL (8.4-10.2); Carbon Dioxide 23 mmol/L (22-30); Chloride 107 mmol/L (98-107); Glucose 90 mg/dL (74-99); Non-African American GFR(CKD) >90 (>60 ml/min/1.73 sqM); Potassium 4.4 mmol/L (3.5-5.1); Sodium 138 mmol/L (137-145); Total Bilirubin 0.4 mg/dL (0.2-1.3)
--- NOTE | 2023-11-05 01:42 | ED ---
Dizziness HPI - General Chief Complaint: Dizziness Stated Complaint: Dizziness,Hypertension Time Seen by Provider: 11/04/23 23:04 Source: patient Mode of arrival: ambulatory Limitations: no limitations - History of Present Illness Initial Comments: 38-year-old female presenting with chief complaint of dizziness. Started this evening. Has been intermittent. She does not admit to any alleviating or aggravating factors. She admits to nausea, no vomiting. No headache. Patient reports that 2 years ago she had episode of dizziness that was followed by headache and neurological deficits. She was diagnosed with a complex migraine. She wanted to be evaluated in the event that she had similar symptoms today. No chest pain or difficulty breathing. No abdominal pain. No fever, chills, cough, congestion, sore throat. Patient reports that she did just get over a sinus infection. No numbness, tingling, weakness.. - Related Data Home Medications Medication Instructions Recorded Confirmed Bnu-Jeac-Zalqp Acid 1 cap PO DAILY 12/16/21 08/02/22 [-U Capsule (formulary)] Aspirin EC [Ecotrin Low Dose] 1 tab PO DAILY 08/02/22 08/02/22 Allergies Allergy/AdvReac Type Severity Reaction Status Date / Time oral contrast AdvReac Vomiting Uncoded 11/04/23 22:11 Review of Systems ROS Statement: Those systems with pertinent positive or pertinent negative responses have been documented in the HPI. ROS Other: All systems not noted in ROS Statement are negative. Past Medical History Additional Past Medical History / Comment(s): missed ,chrohns History of Any Multi-Drug Resistant Organisms: None Reported Past Surgical History: Adenoidectomy, Tonsillectomy Additional Past Surgical History / Comment(s): Bowel resection with 3 feet removed due to chrons dx. L oophorectomy for benign tumor. Past Anesthesia/Blood Transfusion Reactions: No Reported Reaction Additional Past Anesthesia/Blood Transfusion Reaction / Comment(s): Pt has never recieved blood. Past Psychological History: Anxiety Smoking Status: Never smoker Past Alcohol Use History: None Reported Past Drug Use History: None Reported - Past Family History Father Family Medical History: Diabetes Mellitus, Myocardial Infarction ([place]) Mother Additional Family Medical History / Comment(s): cholecystectomy Sister(s) Additional Family Medical History / Comment(s): multiple sclerosis General Exam Limitations: no limitations General appearance: alert, in no apparent distress Head exam: Present: atraumatic, normocephalic Eye exam: Present: normal appearance, PERRL, EOMI Pupils: Present: normal accommodation ENT exam: Present: TM's normal bilaterally Neck exam: Present: normal inspection. Absent: meningismus Respiratory exam: Present: normal lung sounds bilaterally. Absent: respiratory distress, wheezes, rales, rhonchi, stridor Cardiovascular Exam: Present: regular rate, normal rhythm, normal heart sounds. Absent: systolic murmur, diastolic murmur, rubs, gallop, clicks Extremities exam: Present: normal inspection Neurological exam: Present: alert, oriented X3 Expanded Patient oriented to: Present: person, place, time Speech: Present: fluid speech Cranial nerves: EOM's Intact: Normal Motor strength exam: RUE: 5, LUE: 5, RLE: 5, LLE: 5 Eye Response: (4) open spontaneously Motor Response: (6) obeys commands Verbal Response: (5) oriented [place] Total: 15 Psychiatric exam: Present: normal affect, normal mood Skin exam: Present: warm, dry Course Vital Signs 11/04/23 11/05/23 11/05/23 22:10 00:12 02:06 Temperature 97.4 F L 97.6 F Pulse Rate 83 75 81 Respiratory 18 18 18 Rate Blood Pressure 122/84 108/78 126/85 O2 Sat by Pulse 100 99 99 Oximetry Medical Decision Making - Medical Decision Making Was pt. sent in by a medical professional or institution (, PA, LEVEE SUPERINTENDENT, urgent care, hospital, or jail...) When possible be specific @ -No Did you speak to anyone other than the patient for history (EMS, parent, family, police, friend...)? What history was obtained from this source @ -No Did you review nursing and triage notes (agree or disagree)? Why? @ -I reviewed and agree with nursing and triage notes Were old charts reviewed (outside hosp., previous admission, EMS record, old EKG, old radiological studies, urgent care reports/EKG's, jail records)? Report findings @ -No old charts were reviewed Differential Diagnosis (chest pain, altered mental status, abdominal pain women, abdominal pain men, vaginal bleeding, weakness, fever, dyspnea, syncope, headache, dizziness, GI bleed, back pain, seizure, CVA, palpatations, mental health, musculoskeletal)? @ -MDM Differential Dizziness: Benign paroxysmal positional Vertigo, Menieres disease, otitis media, acoustic neuroma, vertebrobasilar insufficiency, cerebellar stroke, encephalitis, hypovolemic, arrhythmia, coronary artery syndrome, anemia this is not meant to be an all-inclusive list EKG interpreted by me (3pts min.). @ -EKG shows sinus rhythm ventricular rate 80. AL interval 141. QRS 88 QT 358. QTc 394. X-rays interpreted by me (1pt min.). @ -Chest x-ray shows no acute cardiopulmonary process CT interpreted by me (1pt min.). @ -None done U/S interpreted by me (1pt. min.). @ -None done What testing was considered but not performed or refused? (CT, X-rays, U/S, labs)? Why? @ -None What meds were considered but not given or refused? Why? @ -None Did you discuss the management of the patient with other professionals (professionals i.e. , PA, LEVEE SUPERINTENDENT, lab, RT, psych nurse, social psychologist, back tacker, teacher, patrol community service officer, case repairer)? Give summary @ -No Was smoking cessation discussed for >3mins.? @ -No Was critical care preformed (if so, how long)? @ -No Were there social determinants of health that impacted care today? How? (Homelessness, low income, unemployed, alcoholism, drug addiction, transportation, low edu. Level, literacy, decrease access to med. care, [facility], rehab)? @ -No Was there de-escalation of care discussed even if they declined (Discuss DNR or withdrawal of care, Hospice)? DNR status @ -No What co-morbidities impacted this encounter? (DM, HTN, Smoking, COPD, CAD, Cancer, CVA, ARF, Chemo, Hep., AIDS, mental health diagnosis, sleep apnea, morbid obesity)? @ -None Was patient admitted / discharged? Hospital course, mention meds given and route, prescriptions, significant lab abnormalities, going to OR and other pertinent info. @ -38-year-old female presenting with chief complaint of dizziness. This came on at home this evening and has been intermittent. She is concerned as she has history of complex migraine, this occurred 1 time 2 years ago. History and physical exam were conducted. Lab work is grossly unremarkable. Chest x-ray shows no acute process. EKG shows sinus rhythm. Patient is given meclizine. On reassessment she is resting comfortably showing no acute signs of distress. Her dizziness has not returned. She tells me that she recently was on antibiotics for sinus infection. Dizziness may have been due to inner ear ear etiology, follow-up with PCP. Discharged home. Follow-up with PCP. Report back to ER with any new or worsening symptoms. Discussed return parameters and answered all questions. Patient conveyed verbal understanding and agreed to the plan. I discussed this case in detail with my attending Dr. Martin Undiagnosed new problem with uncertain prognosis? @ -No Drug Therapy requiring intensive monitoring for toxicity (Heparin, Nitro, Insulin, Cardizem)? @ -No Were any procedures done? @ -No Diagnosis/symptom? @ -Dizziness Acute, or Chronic, or Acute on Chronic? @ -Acute Uncomplicated (without systemic symptoms) or Complicated (systemic symptoms)? @ -Uncomplicated Side effects of treatment? @ -No Exacerbation, Progression, or Severe Exacerbation? @ -No Poses a threat to life or bodily function? How? (Chest pain, [place], [place], pneumonia, PE, COPD, DKA, ARF, appy, cholecystitis, CVA, Diverticulitis, Homicidal, Suicidal, threat to staff... and all critical care pts) @ -Low likelihood - Lab Data Result diagrams: 11/05/23 00:10 11/05/23 00:10 Lab Results 11/05/23 11/05/23 11/05/23 Range/Units 00:10 00:10 00:10 WBC 5.7 (3.8-10.6) k/uL RBC 4.57 (3.80-5.40) m/uL Hgb 12.4 (11.4-16.0) gm/dL Hct 38.8 (34.0-46.0) % MCV 84.8 (80.0-100.0) fL MCH 27.2 (25.0-35.0) pg MCHC 32.0 (31.0-37.0) g/dL RDW 13.5 (11.5-15.5) % Plt Count 306 (150-450) k/uL MPV 8.1 Neutrophils % 56 % Lymphocytes % 32 % Monocytes % 7 % Eosinophils % 2 % Basophils % 1 % Neutrophils # 3.2 (1.3-7.7) k/uL Lymphocytes # 1.8 (1.0-4.8) k/uL Monocytes # 0.4 (0-1.0) k/uL Eosinophils # 0.1 (0-0.7) k/uL Basophils # 0.0 (0-0.2) k/uL PT 10.5 (10.0-12.5) sec INR 1.0 (<1.2) Sodium (137-145) mmol/L Potassium (3.5-5.1) mmol/L Chloride (98-107) mmol/L Carbon Dioxide (22-30) mmol/L Anion Gap mmol/L BUN (7-17) mg/dL Creatinine (0.52-1.04) mg/dL Est GFR (CKD-EPI)AfAm (>60 ml/min/1.73 sqM) Est GFR (CKD-EPI)NonAf (>60 ml/min/1.73 sqM) Glucose (74-99) mg/dL Calcium (8.4-10.2) mg/dL Total Bilirubin (0.2-1.3) mg/dL AST (14-36) U/L ALT (4-34) U/L Alkaline Phosphatase (38-126) U/L Troponin I (0.000-0.034) ng/mL Total Protein (6.3-8.2) g/dL Albumin (3.5-5.0) g/dL Urine Color Colorless Urine Appearance Clear (Clear) Urine pH 6.5 (5.0-8.0) Ur Specific [place] 1.004 (1.001-1.035) Urine Protein Negative (Negative) Urine Glucose (UA) Negative (Negative) Urine Ketones Negative (Negative) Urine Blood Negative (Negative) Urine Nitrite Negative (Negative) Urine Bilirubin Negative (Negative) Urine Urobilinogen <2.0 (<2.0) mg/dL Ur Leukocyte Esterase Negative (Negative) Urine HCG, Qual (Not Detectd) 11/05/23 11/05/23 11/05/23 Range/Units 00:10 00:10 00:10 WBC (3.8-10.6) k/uL RBC (3.80-5.40) m/uL Hgb (11.4-16.0) gm/dL Hct (34.0-46.0) % MCV (80.0-100.0) fL MCH (25.0-35.0) pg MCHC (31.0-37.0) g/dL RDW (11.5-15.5) % Plt Count (150-450) k/uL MPV Neutrophils % % Lymphocytes % % Monocytes % % Eosinophils % % Basophils % % Neutrophils # (1.3-7.7) k/uL Lymphocytes # (1.0-4.8) k/uL Monocytes # (0-1.0) k/uL Eosinophils # (0-0.7) k/uL Basophils # (0-0.2) k/uL PT (10.0-12.5) sec INR (<1.2) Sodium 138 (137-145) mmol/L Potassium 4.4 (3.5-5.1) mmol/L Chloride 107 (98-107) mmol/L Carbon Dioxide 23 (22-30) mmol/L Anion Gap 8 mmol/L BUN 14 (7-17) mg/dL Creatinine 0.59 (0.52-1.04) mg/dL Est GFR (CKD-EPI)AfAm >90 (>60 ml/min/1.73 sqM) Est GFR (CKD-EPI)NonAf >90 (>60 ml/min/1.73 sqM) Glucose 90 (74-99) mg/dL Calcium 9.4 (8.4-10.2) mg/dL Total Bilirubin 0.4 (0.2-1.3) mg/dL AST 24 (14-36) U/L ALT 18 (4-34) U/L Alkaline Phosphatase 92 (38-126) U/L Troponin I <0.012 (0.000-0.034) ng/mL Total Protein 7.0 (6.3-8.2) g/dL Albumin 4.3 (3.5-5.0) g/dL Urine Color Urine Appearance (Clear) Urine pH (5.0-8.0) Ur Specific [place] (1.001-1.035) Urine Protein (Negative) Urine Glucose (UA) (Negative) Urine Ketones (Negative) Urine Blood (Negative) Urine Nitrite (Negative) Urine Bilirubin (Negative) Urine Urobilinogen (<2.0) mg/dL Ur Leukocyte Esterase (Negative) Urine HCG, Qual Not Detected (Not Detectd) Disposition Clinical Impression: Dizziness Disposition: HOME SELF-CARE Condition: Good Instructions (If sedation given, give patient instructions): Dizziness (ED) Additional Instructions: Follow-up with PCP. Report back to ER with any new or worsening symptoms. Is patient prescribed a controlled substance at d/c from ED?: No Referrals: Panchito Mosqueda MD [Primary Care Provider] - 1-2 days Time of Disposition: 01:41
[2023-11-05 02:41] VITALS: BP 126/85; PULSE 81; TEMP 97.6
== END 2023-11-05 02:06 | disposition home or self-care (01) ==
LOC: EC 22:05
DX: R42 Dizziness and giddiness (principal)
CPT/HCPCS: 36415; 71046; 80053; 81003; 81025; 84484; 85025; 85610; 93005; 96360; 99284